=== PATIENT | male | born 1985 | race African-American/Black ===

== ENCOUNTER 2018-08-28 16:41 | Emergency (ER) | payer MEDICAID ==
[2018-08-28 17:19] VITALS: BP 124/66; PULSE 85
[2018-08-28] MEDS ORDERED: Bacitracin Oint 1 GM U/D Packet TOP ONE (17:49)
[2018-08-28] MEDS ORDERED: Lidocaine 1% with EPINEPHrine 1:100,000 50 ML MDV INFILT ONE (17:49)
--- NOTE | 2018-08-28 17:56 | EDM.PDOC ---
ED HPI GENERAL MEDICAL PROBLEM - General Chief Complaint: Laceration Stated Complaint: LE LIGHT BULB BROKE IN RIGHT HAND Time Seen by Provider: 08/28/18 17:28 Source of Information: Reports: Patient History Limitations: Reports: No Limitations - History of Present Illness INITIAL COMMENTS - FREE TEXT/NARRATIVE: 32 yo male presents to the ER with right hand laceration. he was changing a lamp bulb and the glass broke. full movement in all fingers. no decrease in sensation. up to date on tetanus - Related Data Allergies Allergy/AdvReac Type Severity Reaction Status Date / Time No Known Allergies Allergy Verified 08/28/18 17:30 Home Meds: Home Meds NK [No Known Home Meds] 08/28/18 [History] Past Medical History - Past Health History Medical/Surgical History: Denies Medical/Surgical History Respiratory History: Reports: Asthma Musculoskeletal History: Reports: Other (See Below) Other Musculoskeletal History: cut tip of left thumb off Psychiatric History: Reports: None, Other (See Below) Other Psychiatric History: family history of bipolar disorder - Past Surgical History Head Surgeries/Procedures: Reports: None Respiratory Surgical History: Reports: None Musculoskeletal Surgical History: Reports: None Dermatological Surgical History: Reports: None Social & Family History - Tobacco Use Smoking Status *Q: Current Every Day Smoker Years of Tobacco use: 15 Packs/Tins Daily: 0.5 Second Hand Smoke Exposure: No - Caffeine Use Caffeine Use: Reports: Coffee - Recreational Drug Use Recreational Drug Use: Yes Drug Use in Last 12 Months: Yes Recreational Drug Type: Reports: Marijuana/Hashish Recreational Drug Use Frequency: Weekly ED ROS GENERAL - Review of Systems Review Of Systems: See Below Constitutional: Denies: Fever, Chills, Fatigue Respiratory: Denies: Shortness of Breath, Wheezing Cardiovascular: Denies: Chest Pain ED EXAM, SKIN/RASH Exam: See Below Text/Narrative:: exam limited to right hand Exam Limited By: No Limitations General Appearance: Alert, WD/WN, No Apparent Distress Skin: Warm, Dry, Intact, Other (laceration right hand) Location, Skin: Upper Extremity, Right Characteristics: Other (2 cm laceration ) ED SKIN PROCEDURES - Laceration/Wound Repair Right Anterior Hand Lac/Wound length In cm: 2 Appearance: Superficial, Subcutaneous Distal NVT: Neuro & Vascular Intact, No Tendon Injury Anesthetic Type: Local Local Anesthesia - Lidocaine (Xylocaine): 1% with EPI Local Anesthetic Volume: 4cc Skin Prep: Chlorhexidine (Hibiciens), Saline Exploration/Debridement/Repair: Wound Explored, In a Bloodless Field, Explored to Base Closed with: Sutures Suture Size: 3-0 Suture Type: Nylon, Interrupted, Simple Course - Vital Signs Last Recorded V/S: Last Vital Signs Temp 37.2 C 08/28/18 17:34 Pulse 85 08/28/18 17:34 Resp 16 08/28/18 17:34 BP 124/66 08/28/18 17:34 Pulse Ox 96 08/28/18 17:34 - Orders/Labs/Meds Meds: Medications Discontinued Medications Generic Name Dose Route Start Last Admin Trade Name Freq PRN Reason Stop Dose Admin Bacitracin 1 dose 08/28/18 17:49 08/28/18 18:19 Bacitracin Oint 1 Gm TOP 08/28/18 17:50 1 dose ONETIME ONE Administration Lidocaine/Epinephrine 3 ml 08/28/18 17:49 08/28/18 18:19 Xylocaine 1% With Epinephrine 1:100,000 INFILT 08/28/18 17:50 3 ml ONETIME ONE Administration Departure - Departure Time of Disposition: 18:25 Disposition: Home, Self-Care 01 Condition: Good Clinical Impression: Laceration of right hand Qualifiers: Encounter type: initial encounter Foreign body presence: without foreign body Qualified Code(s): S61.411A - Laceration without foreign body of right hand, initial encounter - Discharge Information *PRESCRIPTION DRUG MONITORING PROGRAM REVIEWED*: Not Applicable *COPY OF PRESCRIPTION DRUG MONITORING REPORT IN PATIENT SAMANTHA: Not Applicable Instructions: Sutured Wound Care, [id number] Referrals: PCP,None [Primary Care Provider] - Forms: ED Department Discharge Additional Instructions: sutures out in 9 days ice for pain control keep wound dry tonight then wash with warm soapy water pat dry observe for signs of infection -fire engine red, purulent drainage, or increase in pain
== END 2018-08-28 18:35 | disposition home or self-care (01) ==
LOC: JP.ED 16:41
DX: S61.411A Laceration without foreign body of right hand, initial encounter (principal); F17.210 Nicotine dependence, cigarettes, uncomplicated; W25.XXXA Contact with sharp glass, initial encounter
CPT/HCPCS: 12001; 99282

== ENCOUNTER 2019-05-06 06:20 | Emergency (ER) | payer BC, MEDICAID ==
[2019-05-06 07:07] VITALS: BP 113/47; PULSE 66
[2019-05-06] MEDS ORDERED: Ketorolac 60 MG/2 ML SDV IM ONE (07:18)
--- NOTE | 2019-05-06 07:20 | EDM.PDOC ---
ED HPI GENERAL MEDICAL PROBLEM - General Chief Complaint: Upper Extremity Injury/Pain Stated Complaint: LEFT SHOULDER INJURY Time Seen by Provider: 05/06/19 07:15 Source of Information: Reports: Patient, RN Notes Reviewed History Limitations: Reports: No Limitations - History of Present Illness INITIAL COMMENTS - FREE TEXT/NARRATIVE: 33-year-old gentleman presents emergency department with a complaint of left shoulder pain, he injured himself yesterday lifting a heavy box now is experiencing pain whenever he abduction his shoulder or any flexion or extension of the shoulder. left shoulder Pain Score (Numeric/FACES): 10 - Related Data Allergies Allergy/AdvReac Type Severity Reaction Status Date / Time No Known Allergies Allergy Verified 05/06/19 07:05 Home Meds: Home Meds NK [No Known Home Meds] 08/28/18 [History] Past Medical History Respiratory History: Reports: Asthma Musculoskeletal History: Reports: Other (See Below) Other Musculoskeletal History: cut tip of left thumb off Psychiatric History: Reports: None, Other (See Below) Other Psychiatric History: family history of bipolar disorder - Infectious Disease History Infectious Disease History: Reports: Chicken Pox - Past Surgical History Head Surgeries/Procedures: Reports: None HEENT Surgical History: Reports: Adenoidectomy, Tonsillectomy, Other (See Below) Other HEENT Surgeries/Procedures: Keloids removed bilateral ears Respiratory Surgical History: Reports: None Musculoskeletal Surgical History: Reports: None Dermatological Surgical History: Reports: None Social & Family History - Tobacco Use Smoking Status *Q: Current Every Day Smoker Years of Tobacco use: 10 Packs/Tins Daily: 0.5 Second Hand Smoke Exposure: Yes - Caffeine Use Caffeine Use: Reports: Coffee - Recreational Drug Use Recreational Drug Use: Yes Recreational Drug Type: Reports: Marijuana/Hashish Recreational Drug Use Frequency: Rarely Review of Systems - Review of Systems Review Of Systems: See Below Respiratory: Reports: No Symptoms Musculoskeletal: Reports: Shoulder Pain Skin: Reports: No Symptoms Neurological: Reports: No Symptoms ED EXAM, GENERAL - Physical Exam Exam: See Below Free Text/Narrative:: Examination of the left shoulder I do not appreciate any erythema there is no edema noted I cannot elicit any point tenderness to palpation he has about 15 degrees abduction will not tolerate any rotation has pain with flexion and extension radial pulses +2 sensation is intact Course - Vital Signs Last Recorded V/S: Last Vital Signs Temp 98.7 F 05/06/19 07:07 Pulse 66 05/06/19 07:07 Resp 14 05/06/19 07:07 BP 113/47 L 05/06/19 07:07 Pulse Ox 96 05/06/19 07:07 - Orders/Labs/Meds Orders: Active Orders 24 hr Category Date Time Status Shoulder Comp Lt [CR] Stat Exams 05/06/19 07:18 Taken Meds: Medications Discontinued Medications Generic Name Dose Route Start Last Admin Trade Name Lisa PRN Reason Stop Dose Admin Ketorolac Tromethamine 60 mg 05/06/19 07:18 05/06/19 07:24 Toradol IM 05/06/19 07:19 60 mg ONETIME ONE Administration Departure - Departure Time of Disposition: 07:43 Disposition: Home, Self-Care 01 Condition: Fair Clinical Impression: Left shoulder strain Qualifiers: Encounter type: initial encounter Qualified Code(s): S46.912A - Strain of unspecified muscle, fascia and tendon at shoulder and upper arm level, left arm , initial encounter - Discharge Information Instructions: Shoulder Pain, [id number], Muscle Strain, [id number] Referrals: PCP,None [Primary Care Provider] - Forms: ED Department Discharge, ED Return to Work/School Form Additional Instructions: Use Tylenol and Motrin as needed for pain control, recommend rest and ice, take the next couple of days off of work for rest, please followup with your primary care provider in 3-5 days if not better, please call return to the emergency department with worsening of symptoms. Sepsis Event Note - Evaluation Sepsis Screening Result: No Definite Risk - Focused Exam Vital Signs: Vital Signs Temp Pulse Resp BP Pulse Ox 05/06/19 07:07 98.7 F 66 14 113/47 L 96 05/06/19 07:05 98.7 F 66 14 113/47 L 96 Date Exam was Performed: 05/06/19 Time Exam was Performed: 07:42 - My Orders Last 24 Hours: My Active Orders 05/06/19 07:18 Shoulder Comp Lt [CR] Stat - Assessment/Plan Last 24 Hours: My Active Orders 05/06/19 07:18 Shoulder Comp Lt [CR] Stat Plan: Assessment Acuity = acute Site and laterality = left shoulder strain Etiology = secondary to lifting injury Manifestations = pain Location of injury = Home Lab values = shoulder x-ray I did review films myself I cannot appreciate any acute process, the official read from radiology is pending Plan He had some relief from the Toradol injection provided he is going to use Tylenol or Motrin as needed for pain control, with rest work note will be provided for a couple days off have him follow-up with his primary care in 3 to 5 days for further evaluation which may include physical therapy. We will contact him if the radiology read differs from my initial assessment This note was dictated using [employer] voice recognition software please call with any questions on syntax or grammar.
--- NOTE | 2019-05-06 10:23 | CR ---
Shoulder Comp Lt CLINICAL HISTORY: Pain FINDINGS: There is no acute fracture or dislocation in the left shoulder. Before meals and glenohumeral joints are intact. Articular surfaces are smooth. IMPRESSION: Negative
== END 2019-05-06 07:50 | disposition home or self-care (01) ==
LOC: JP.ED 06:20
DX: S46.912A Strain of unspecified muscle, fascia and tendon at shoulder and upper arm level, left arm, initial encounter (principal); J45.909 Unspecified asthma, uncomplicated; F17.210 Nicotine dependence, cigarettes, uncomplicated; X50.9XXA Other and unspecified overexertion or strenuous movements or postures, initial encounter
CPT/HCPCS: 73030; 96372; 99283; J1885